=== PATIENT | male | born 1940 | race Caucasian/White ===

== ENCOUNTER 2020-09-13 19:47 | Inpatient (IN) ==
[2020-09-13] MEDS ORDERED: Pantoprazole VIAL 40 MG VIAL IV ONE (20:25)
[2020-09-13] MEDS ORDERED: NS 0.9% 1000 ml BAG 2,000 ML IV ONE (20:25)
[2020-09-13] MEDS ORDERED: Phytonadione IV (Adult) 10 MG in NS 0.9% 50 ML 50 ML IV ONE (20:26)
[2020-09-13 20:55] LABS: ABS Lymphocytes 0.7 10^3/ul (1.0-4.8); ABS Monocytes 0.9 10^3/ul (0-0.8); ABS Neutrophils 11.2 10^3/ul (1.5-7.7); Hematocrit 27 % (42-52); Lymphocyte % 5.5 %; Mean Corpuscular HGB Conc 34 g/dL (31-36); Mean Corpuscular Hemoglobin 30 pg (27-31); Mean Corpuscular Volume 90 fL (80-94); Mean Platelet Volume 7.3 fL (7.4-10.4); Platelet Count 309 10^3/uL (150-450); Red Blood Count 2.96 10^6 /uL (4.18-5.48); Red Cell Distribution Width 15 % (10-15); White Blood Count 12.7 10^3/uL (3.5-10.8)
[2020-09-13 21:11] LABS: Albumin 3.7 g/dL (3.2-5.2); Albumin/Globulin Ratio 1.6 (1-3); BUN/Creatinine Ratio 44.4 (8-20); Calcium 8.8 mg/dL (8.6-10.3); EGFR African American 25.6 (>60); EGFR Non-African American 21.2 (>60); Globulin 2.3 g/dL (2-4); Potassium 3.8 mmol/L (3.5-5.0); Total Bilirubin 1.3 mg/dL (0.2-1.0)
[2020-09-13] MEDS ORDERED: Dextrose 50% Syringe 50 ml 25 GM/50 ML SYRINGE IV PUSH PRN (22:58)
[2020-09-13] MEDS ORDERED: Ondansetron 4 mg VIAL 2 MG/ML 2 ml VIAL IV PRN (22:58)
[2020-09-13] MEDS ORDERED: NS 0.9% 1000 ml BAG 1,000 ML IV SCH (23:00)
[2020-09-13] MEDS: Pantoprazole 80 mg in NS BAG 80 MG/250 ML BAG IV SCH (23:52)
[2020-09-14 00:43] LABS: Activated Partial Thrombo Time 67.6 seconds (26.0-38.0)
[2020-09-14 00:47] LABS: INR >10.00 (0.82-1.09)
[2020-09-14] MEDS ORDERED: Prothrombin Complex Conc. DOSE = Units Factor IX (nine) IV SLOW PU ONE (00:48)
[2020-09-14 02:39] LABS: Urine Appearance Cloudy; Urine Bilirubin Negative (Negative); Urine Blood 3+ (Negative); Urine Color Amber; Urine Glucose Negative (Negative); Urine Ketones Negative (Negative); Urine Nitrite Negative (Negative); Urine Protein 1+(30 mg/dL) (Negative); Urine Specific Gravity 1.015 (1.010-1.030); Urine Urobilinogen Negative (Negative)
[2020-09-14 02:44] LABS: Urine Bacteria Absent (Absent); Urine Red Blood Cell 3+(>10/hpf) (Absent); Urine White Blood Cell 3+(>20/hpf) (Absent)
[2020-09-14 02:45] LABS: Urine Creatinine Concentration 87.37 mg/dL
[2020-09-14 03:10] LABS: Hematocrit 25 % (42-52); Hemoglobin 8.1 g/dL (14.0-18.0)
[2020-09-14 03:31] LABS: BUN/Creatinine Ratio 55.5 (8-20); Calcium 7.9 mg/dL (8.6-10.3); EGFR African American 34.9 (>60); EGFR Non-African American 28.9 (>60)
[2020-09-14] MEDS ORDERED: Potassium Chlor 20 meq TAB.ER PO ONE (03:39)
[2020-09-14 04:37] LABS: Magnesium 2.1 mg/dL (1.9-2.7)
[2020-09-14 04:41] LABS: ABS Lymphocytes 1.4 10^3/ul (1.0-4.8); ABS Monocytes 1.2 10^3/ul (0-0.8); ABS Neutrophils 11.2 10^3/ul (1.5-7.7); Hematocrit 25 % (42-52); Hemoglobin 8.3 g/dL (14.0-18.0); Lymphocyte % 10.3 %; Mean Corpuscular HGB Conc 34 g/dL (31-36); Mean Corpuscular Hemoglobin 30 pg (27-31); Mean Corpuscular Volume 89 fL (80-94); Mean Platelet Volume 7.3 fL (7.4-10.4); Platelet Count 244 10^3/uL (150-450); Red Blood Count 2.76 10^6 /uL (4.18-5.48); Red Cell Distribution Width 15 % (10-15); White Blood Count 13.8 10^3/uL (3.5-10.8)
[2020-09-14 04:48] LABS: INR 1.2 (0.82-1.09)
[2020-09-14] MEDS: KCL 10 MEQ/50 ML IVPREMIX 10 MEQ/50 ML BAG IV SCH ×3 (06:14→09:38)
[2020-09-14 07:54] LABS: Hematocrit 24 % (42-52)
[2020-09-14] MEDS: Pantoprazole 80 mg in NS BAG 80 MG/250 ML BAG IV SCH ×2 (09:59→20:11)
[2020-09-14 12:42] LABS: Hematocrit 26 % (42-52); Hemoglobin 8.7 g/dL (14.0-18.0)
[2020-09-14 14:07] LABS: Calcium 8.6 mg/dL (8.6-10.3); Potassium 3.5 mmol/L (3.5-5.0)
[2020-09-14 14:13] LABS: BUN/Creatinine Ratio 56.4 (8-20); EGFR African American 43.8 (>60); EGFR Non-African American 36.2 (>60)
[2020-09-14] MEDS ORDERED: Magnesium Sulfate IV 1GM/100ML 1 GM/100 ML BAG IV ONE (14:37)
[2020-09-14] MEDS: NS 0.9% w/ 20 Meq KCL 1000 ml 1,000 ML IV SCH (15:00)
[2020-09-14] MEDS ORDERED: Midazolam 10 mg/10 ml VIAL 1 mg/ml 10 ml VIAL (10 mg) ONE (15:09)
[2020-09-14] MEDS ORDERED: fentaNYL 100 mcg/2 ml 50 MCG/ML VIAL ONE (15:09)
[2020-09-15] MEDS: NS 0.9% w/ 20 Meq KCL 1000 ml 1,000 ML IV SCH ×2 (00:52→11:31)
[2020-09-15 04:46] LABS: ABS Lymphocytes 0.8 10^3/ul (1.0-4.8); ABS Monocytes 0.8 10^3/ul (0-0.8); ABS Neutrophils 6.7 10^3/ul (1.5-7.7); Eosinophil % 0.1 %; Hematocrit 22 % (42-52); Hemoglobin 7.4 g/dL (14.0-18.0); Lymphocyte % 9.5 %; Mean Corpuscular HGB Conc 34 g/dL (31-36); Mean Corpuscular Hemoglobin 31 pg (27-31); Mean Corpuscular Volume 91 fL (80-94); Mean Platelet Volume 7.1 fL (7.4-10.4); Platelet Count 231 10^3/uL (150-450); Red Blood Count 2.43 10^6 /uL (4.18-5.48); Red Cell Distribution Width 16 % (10-15); White Blood Count 8.3 10^3/uL (3.5-10.8)
[2020-09-15 05:02] LABS: BUN/Creatinine Ratio 58.2 (8-20); Calcium 7.6 mg/dL (8.6-10.3); EGFR African American 77.7 (>60); EGFR Non-African American 64.2 (>60); Potassium 3.1 mmol/L (3.5-5.0)
[2020-09-15] MEDS ORDERED: Potassium Chlor 20 meq TAB.ER PO ONE (05:24)
[2020-09-15] MEDS: Pantoprazole 80 mg in NS BAG 80 MG/250 ML BAG IV SCH (07:49)
[2020-09-15] MEDS: Potassium Chlor 20 meq TAB.ER PO SCH ×2 (08:00→20:07)
[2020-09-15] MEDS: Pantoprazole VIAL 40 MG VIAL IV SCH (20:07)
[2020-09-16 03:39] LABS: Urine Appearance Clear; Urine Bilirubin Negative (Negative); Urine Blood 2+ (Negative); Urine Color Yellow; Urine Glucose 2+(150 mg/dL) (Negative); Urine Ketones Negative (Negative); Urine Nitrite Negative (Negative); Urine Protein Negative (Negative); Urine Specific Gravity 1.018 (1.010-1.030); Urine Urobilinogen Positive (Negative)
[2020-09-16 03:41] LABS: Urine Bacteria Absent (Absent); Urine Red Blood Cell 3+(>10/hpf) (Absent); Urine White Blood Cell 1+(6-10/hpf) (Absent)
[2020-09-16 07:06] LABS: ABS Lymphocytes 1.1 10^3/ul (1.0-4.8); ABS Monocytes 0.7 10^3/ul (0-0.8); ABS Neutrophils 5.1 10^3/ul (1.5-7.7); Eosinophil % 0.6 %; Hematocrit 21 % (42-52); Hemoglobin 7.1 g/dL (14.0-18.0); Lymphocyte % 16.3 %; Mean Corpuscular HGB Conc 34 g/dL (31-36); Mean Corpuscular Hemoglobin 31 pg (27-31); Mean Corpuscular Volume 91 fL (80-94); Mean Platelet Volume 6.7 fL (7.4-10.4); Nucleated Red Blood Cells % 0.1; Platelet Count 255 10^3/uL (150-450); Red Blood Count 2.33 10^6 /uL (4.18-5.48); Red Cell Distribution Width 16 % (10-15)
[2020-09-16 07:17] LABS: BUN/Creatinine Ratio 39.5 (8-20); Calcium 7.8 mg/dL (8.6-10.3); EGFR African American 110.7 (>60); EGFR Non-African American 91.5 (>60); Potassium 4.4 mmol/L (3.5-5.0)
[2020-09-16] MEDS: Potassium Chlor 20 meq TAB.ER PO SCH ×2 (08:18→21:38)
[2020-09-16] MEDS: Pantoprazole VIAL 40 MG VIAL IV SCH ×2 (08:18→21:37)
[2020-09-16 17:10] LABS: Hematocrit 22 % (42-52); Hemoglobin 7.5 g/dL (14.0-18.0)
[2020-09-17] MEDS: Potassium Chlor 20 meq TAB.ER PO SCH ×2 (08:21→20:07)
[2020-09-17] MEDS: Pantoprazole VIAL 40 MG VIAL IV SCH ×2 (08:21→20:06)
[2020-09-17 09:34] LABS: Hematocrit 25 % (42-52); Hemoglobin 8.6 g/dL (14.0-18.0)
[2020-09-17] MEDS ORDERED: Haloperidol 5 mg/ml SDV IV/IM 5 MG/ML AMP IV SLOW PU ONE (23:34)
[2020-09-17] MEDS: Haloperidol 5 mg/ml SDV IV/IM 5 MG/ML AMP ONE ×2 (23:51→23:52)
[2020-09-18] MEDS: Pantoprazole VIAL 40 MG VIAL IV SCH ×2 (09:09→20:08)
[2020-09-18] MEDS: Potassium Chlor 20 meq TAB.ER PO SCH ×2 (09:09→20:04)
[2020-09-18 13:35] LABS: Hematocrit 26 % (42-52); Hemoglobin 8.7 g/dL (14.0-18.0)
[2020-09-18] MEDS ORDERED: Haloperidol 5 mg/ml SDV IV/IM 5 MG/ML AMP IV SLOW PU ONE (18:59)
[2020-09-18] MEDS ORDERED: Haloperidol 5 mg/ml SDV IV/IM 5 MG/ML AMP ONE (19:02)
[2020-09-19 09:31] LABS: Hematocrit 24 % (42-52); Hemoglobin 8.2 g/dL (14.0-18.0)
[2020-09-19 09:37] LABS: INR 1.33 (0.82-1.09)
[2020-09-19] MEDS: Potassium Chlor 20 meq TAB.ER PO SCH ×2 (09:54→20:56)
[2020-09-19] MEDS: Pantoprazole VIAL 40 MG VIAL IV SCH ×2 (09:54→20:56)
[2020-09-19 10:03] LABS: Calcium 8.1 mg/dL (8.6-10.3); EGFR African American 117.3 (>60); Potassium 4.5 mmol/L (3.5-5.0)
[2020-09-20] MEDS: Pantoprazole VIAL 40 MG VIAL IV SCH (09:28)
[2020-09-20] MEDS: Potassium Chlor 20 meq TAB.ER PO SCH ×2 (09:28→21:37)
[2020-09-21 08:29] LABS: Hematocrit 29 % (42-52); Hemoglobin 9.5 g/dL (14.0-18.0)
[2020-09-21] MEDS: Potassium Chlor 20 meq TAB.ER PO SCH (08:57)
[2020-09-21] MEDS ORDERED: Lorazepam PYXIS KEY PRN (12:28)
[2020-09-21] MEDS ORDERED: LORazepam 2 mg VIAL 1 ml IV PUSH ONE ×2 (12:28→13:53)
[2020-09-21] MEDS ORDERED: LORazepam 2 mg VIAL 1 ml ONE (12:32)
[2020-09-21 17:22] VITALS: BP 99/54
== END 2020-09-21 15:00 | disposition swing bed (61) | DRG 377 ==
LOC: ED 19:47 → ICU 22:54 → MEDTELE 09-15 14:45
PROVIDERS: ADMIT Internal Medicine; ATTEND Student in an Organized Health Care Education/Training Program

== ENCOUNTER 2020-09-21 15:14 | Inpatient (IN) ==
[2020-09-21] MEDS ORDERED: Dextrose 50% Syringe 50 ml 25 GM/50 ML SYRINGE IV PUSH PRN (15:31)
[2020-09-21] MEDS ORDERED: Ondansetron ODT 4 mg TAB 4 MG TAB SL PRN (15:33)
[2020-09-21] MEDS: Potassium Chlor 20 meq TAB.ER PO SCH (20:05)
[2020-09-22] MEDS: Potassium Chlor 20 meq TAB.ER PO SCH ×2 (08:50→20:01)
[2020-09-23] MEDS: Potassium Chlor 20 meq TAB.ER PO SCH ×2 (08:48→20:34)
[2020-09-24] MEDS ORDERED: Magnesium Hydroxide LIQ 30 ML UDC PO PRN (04:03)
[2020-09-24] MEDS ORDERED: Polyethylene Glycol 3350 17 GM PACKET PO PRN (04:03)
[2020-09-24] MEDS ORDERED: Albuterol 2.5mg/3 ml (0.083%) NEB.SOLN INH PRN (08:08)
[2020-09-24] MEDS: Potassium Chlor 20 meq TAB.ER PO SCH ×2 (08:30→21:22)
[2020-09-25] MEDS: Potassium Chlor 20 meq TAB.ER PO SCH ×2 (08:21→20:32)
[2020-09-26 09:30] VITALS: BP 128/85
[2020-09-26] MEDS: Potassium Chlor 20 meq TAB.ER PO SCH (09:44)
== END 2020-09-26 11:50 | DRG 378 ==
LOC: MEDTELE 15:47
PROVIDERS: ADMIT Internal Medicine; ATTEND Hospitalist

== ENCOUNTER 2021-06-22 14:15 | Inpatient (IN) ==
[2021-06-22] MEDS ORDERED: NS 0.9% 1000 ml BAG 1,000 ML IV ONE ×2 (14:44→17:46)
[2021-06-22 15:27] LABS: ABS Lymphocytes 0.6 10^3/ul (1.0-4.8); ABS Monocytes 0.2 10^3/ul (0-0.8); ABS Neutrophils 4.1 10^3/ul (1.5-7.7); Eosinophil % 0.1 %; Hematocrit 41 % (42-52); Hemoglobin 13.4 g/dL (14.0-18.0); Lymphocyte % 12.1 %; Mean Corpuscular HGB Conc 33 g/dL (31-36); Mean Corpuscular Hemoglobin 29 pg (27-31); Mean Corpuscular Volume 87 fL (80-94); Mean Platelet Volume 7.2 fL (7.4-10.4); Platelet Count 311 10^3/uL (150-450); Red Blood Count 4.67 10^6 /uL (4.18-5.48); Red Cell Distribution Width 18 % (10-15); White Blood Count 4.9 10^3/uL (3.5-10.8)
[2021-06-22 15:57] LABS: ALT 12 U/L (7-52); AST 20 U/L (13-39); Albumin/Globulin Ratio 1.1 (1-3); Alkaline Phosphatase 67 U/L (35-149); Blood Urea Nitrogen 55 mg/dL (6-24); CO2 Carbon Dioxide 23 mmol/L (22-32); Calcium 8.7 mg/dL (8.6-10.3); Chloride 98 mmol/L (101-111); Creatine Kinase 27 U/L (10-223); Globulin 2.7 g/dL (2-4); Glucose 95 mg/dL (70-100); Sodium 130 mmol/L (135-145); Total Protein 5.7 g/dL (6.4-8.9)
[2021-06-22 16:00] LABS: Acetaminophen 17 mcg/mL; Alcohol, S < 13 mg/dL (<13); Salicylate < 2.50 mg/dL (<30)
[2021-06-22 16:00] LABS: PCO2 Arterial 38 mmHg (35-45)
[2021-06-22 16:04] LABS: Troponin I 0.14 ng/mL (<0.03)
[2021-06-22 16:14] LABS: TSH Ultra Thyroid Stim Horm 2.85 mcIU/mL (0.34-5.60)
[2021-06-22 16:15] LABS: Anion Gap 9 mmol/L (2-11); Potassium 6.3 mmol/L (3.5-5.0)
[2021-06-22] MEDS ORDERED: cefTRIAXone 1 gm/50 mL NS BAG 1 GM/50 ML BAG IV ONE (16:29)
[2021-06-22] MEDS ORDERED: Dextrose 50% Syringe 50 ml 25 GM/50 ML SYRINGE IV PUSH ONE (16:29)
[2021-06-22] MEDS ORDERED: Dextrose 50% Syringe 50 ml 25 GM/50 ML SYRINGE IV PUSH PRN (16:29)
[2021-06-22] MEDS ORDERED: Azithromycin 500 mg/250 ml NS 500 MG/250 ML BAG IVPB ONE (16:29)
[2021-06-22] MEDS ORDERED: Cefepime 2 GM in Dextrose 2 GM/50 ML BAG IV ONE (16:31)
[2021-06-22] MEDS ORDERED: Clindamycin 600 MG/D5W BAG 600 MG/50 ML BAG IV ONE (16:31)
[2021-06-22] MEDS ORDERED: Albuterol 2.5mg/3 ml (0.083%) NEB.SOLN INH ONE (16:32)
[2021-06-22 16:51] LABS: PO2 Arterial < 38 mmHg (80-100)
[2021-06-22 17:38] LABS: PCO2 Arterial 28 mmHg (35-45); PO2 Arterial 77 mmHg (80-100)
[2021-06-22] MEDS ORDERED: Piperacillin/Tazobac ADVAN 3.375 GM in NS 0.9% 100 ml BAG 100 ML IV ONE (17:43)
[2021-06-22] MEDS ORDERED: Collagenase 250 units/gm OINT 1 tube TOPICAL PRN (17:46)
[2021-06-22] MEDS ORDERED: Magnesium Hydroxide LIQ 30 ML UDC PO PRN (17:46)
[2021-06-22] MEDS ORDERED: Zosyn per Pharmacy NOTE FOLLOW UP SCH (18:00)
[2021-06-22 19:58] LABS: Blood Urea Nitrogen 54 mg/dL (6-24); CO2 Carbon Dioxide 23 mmol/L (22-32); Calcium 8.6 mg/dL (8.6-10.3); Chloride 100 mmol/L (101-111); Glucose 114 mg/dL (70-100); Sodium 132 mmol/L (135-145)
[2021-06-22] MEDS ORDERED: Lactated Ringers 1000 ml BAG 1,000 ML IV SCH (20:00)
[2021-06-22] MEDS ORDERED: Azithromycin 500 mg/250 ml NS 500 MG/250 ML BAG IVPB SCH (20:00)
[2021-06-22 20:07] LABS: Rapid COVID-19 Molecular Undetected (Undetected)
[2021-06-22 20:20] LABS: Anion Gap 9 mmol/L (2-11); Potassium 5.4 mmol/L (3.5-5.0); Troponin I 0.13 ng/mL (<0.03)
[2021-06-23 00:02] LABS: Urine Appearance Cloudy; Urine Bilirubin Negative (Negative); Urine Blood 3+ (Negative); Urine Color Yellow; Urine Glucose Negative (Negative); Urine Ketones Negative (Negative); Urine Nitrite Negative (Negative); Urine Protein 1+(30 mg/dL) (Negative); Urine Specific Gravity 1.021 (1.002-1.030); Urine Urobilinogen Negative (Negative)
[2021-06-23 00:12] LABS: Urine Bacteria 1+ (Absent); Urine Granular Casts Present (Absent); Urine Red Blood Cell 3+(>10/hpf) (Absent); Urine Squamous Epithelial Cell Present (Absent); Urine White Blood Cell 3+(>20/hpf) (Absent)
[2021-06-23 00:16] LABS: Calcium 8.6 mg/dL (8.6-10.3)
[2021-06-23] MEDS: ZOSYN 3.375 GM Q8H per EXTENDED INFUSION IV SCH ×3 (00:51→16:14)
[2021-06-23 05:03] LABS: Hematocrit 43 % (42-52); Hemoglobin 14.4 g/dL (14.0-18.0); Mean Corpuscular HGB Conc 34 g/dL (31-36); Mean Corpuscular Hemoglobin 29 pg (27-31); Mean Corpuscular Volume 88 fL (80-94); Mean Platelet Volume 7.2 fL (7.4-10.4); Platelet Count 276 10^3/uL (150-450); Red Blood Count 4.91 10^6 /uL (4.18-5.48); Red Cell Distribution Width 18 % (10-15); White Blood Count 6.8 10^3/uL (3.5-10.8)
[2021-06-23 05:06] LABS: INR 3.69 (0.86-1.15)
[2021-06-23 05:18] LABS: Albumin 3.1 g/dL (3.2-5.2); Albumin/Globulin Ratio 1.1 (1-3); Calcium 8.9 mg/dL (8.6-10.3); Globulin 2.9 g/dL (2-4); Magnesium 2.1 mg/dL (1.9-2.7); Phosphorus 3.1 mg/dL (2.5-5.0); Potassium 4.5 mmol/L (3.5-5.0); Total Bilirubin 1.8 mg/dL (0.2-1.0)
[2021-06-23 06:19] LABS: ABS Lymphocytes 0.6 10^3/ul (1.0-4.8); ABS Monocytes 0.2 10^3/ul (0-0.8); ABS Neutrophils 5.7 10^3/ul (1.5-7.7); Lymphocyte % 8.9 %; Nucleated Red Blood Cells % 0.1
[2021-06-23] MEDS ORDERED: Lactated Ringers 1000 ml BAG 500 ML IV ONE (07:23)
[2021-06-23 08:01] LABS: Direct Bilirubin 0.8 mg/dL (0.03-0.18)
[2021-06-23] MEDS ORDERED: Morphine 2 MG/ML SYRINGE IV ONE (12:02)
[2021-06-23 14:01] LABS: Anion Gap 10 mmol/L (2-11); Blood Urea Nitrogen 47 mg/dL (6-24); CO2 Carbon Dioxide 21 mmol/L (22-32); Chloride 103 mmol/L (101-111); Glucose 124 mg/dL (70-100); Magnesium 2.1 mg/dL (1.9-2.7); Potassium 4.3 mmol/L (3.5-5.0); Sodium 134 mmol/L (135-145)
[2021-06-23 14:07] LABS: Troponin I 0.44 ng/mL (<0.03)
[2021-06-23] MEDS ORDERED: Metoprolol Tartrate 5 mg VIAL 5 ml VIAL (1 mg/ml) IV ONE (14:13)
[2021-06-23] MEDS ORDERED: Metoprolol Tartrate 5 mg VIAL 5 ml VIAL (1 mg/ml) ONE (14:17)
[2021-06-23] MEDS: Metoprolol Tartrate 5 mg VIAL 5 ml VIAL (1 mg/ml) IV SCH ×2 (16:13→21:10)
[2021-06-23 17:43] LABS: Troponin I 0.46 ng/mL (<0.03)
[2021-06-23 20:31] LABS: Troponin I 0.27 ng/mL (<0.03)
[2021-06-23 22:21] LABS: PCO2 Arterial 32 mmHg (35-45); PO2 Arterial 90 mmHg (80-100)
[2021-06-23] MEDS ORDERED: Pantoprazole VIAL 40 MG VIAL IV ONE (22:35)
[2021-06-23] MEDS ORDERED: Octreotide Acetate 50 MCG in NS 0.9% 50 ML 50 ML IV ONE (22:38)
[2021-06-23 22:44] LABS: Hematocrit 48 % (42-52); Hemoglobin 15.3 g/dL (14.0-18.0)
[2021-06-23 22:53] LABS: Hematocrit 47 % (42-52); Hemoglobin 15.3 g/dL (14.0-18.0); Mean Corpuscular HGB Conc 33 g/dL (31-36); Mean Corpuscular Hemoglobin 29 pg (27-31); Mean Corpuscular Volume 90 fL (80-94); Mean Platelet Volume 7.3 fL (7.4-10.4); Platelet Count 296 10^3/uL (150-450); Red Blood Count 5.25 10^6 /uL (4.18-5.48); Red Cell Distribution Width 19 % (10-15); White Blood Count 4.3 10^3/uL (3.5-10.8)
[2021-06-23] MEDS: Pantoprazole 80 mg in NS BAG 80 MG/250 ML BAG IV SCH (23:00)
[2021-06-23] MEDS ORDERED: Octreotide Acetate 500 MCG in NS 0.9% 100 ml BAG 100 ML IV SCH (23:00)
[2021-06-23] MEDS ORDERED: Prothrombin Complex Conc. DOSE = Units Factor IX (nine) IV SLOW PU ONE (23:04)
[2021-06-23] MEDS ORDERED: Norepinephrine 16MCG/ML IVPRE 4,000 MCG/250 ML BAG IV SCH (23:45)
[2021-06-23 23:47] LABS: Activated Partial Thrombo Time 30.1 seconds (26.0-38.0); INR 2.47 (0.86-1.15)
[2021-06-24] MEDS ORDERED: NS 0.9% 250 ml 250 ML IV ONE (00:14)
[2021-06-24] MEDS ORDERED: NS 0.9% 1000 ml BAG 1,000 ML IV SCH (00:15)
[2021-06-24] MEDS: ZOSYN 3.375 GM Q8H per EXTENDED INFUSION IV SCH ×4 (01:29→22:21)
[2021-06-24 01:47] LABS: Hematocrit 42 % (42-52); Hemoglobin 13.8 g/dL (14.0-18.0)
[2021-06-24] MEDS ORDERED: NS 0.9% 500 ml BAG 500 ML IV ONE (03:05)
[2021-06-24] MEDS: Metoprolol Tartrate 5 mg VIAL 5 ml VIAL (1 mg/ml) IV SCH ×4 (04:53→20:46)
[2021-06-24 05:18] LABS: INR 1.79 (0.86-1.15)
[2021-06-24 05:27] LABS: Calcium 8.2 mg/dL (8.6-10.3); Magnesium 1.9 mg/dL (1.9-2.7); Phosphorus 2.8 mg/dL (2.5-5.0); Potassium 3.8 mmol/L (3.5-5.0)
[2021-06-24] MEDS: Dextrose 50% Syringe 50 ml 25 GM/50 ML SYRINGE IV PUSH PRN ×2 (05:40→16:27)
[2021-06-24 05:48] LABS: Burr Cells 3+; Hematocrit 40 % (42-52); Hemoglobin 13.4 g/dL (14.0-18.0); Mean Corpuscular HGB Conc 33 g/dL (31-36); Mean Corpuscular Hemoglobin 29 pg (27-31); Mean Corpuscular Volume 88 fL (80-94); Mean Platelet Volume 7.5 fL (7.4-10.4); Platelet Count 253 10^3/uL (150-450); Red Blood Count 4.59 10^6 /uL (4.18-5.48); Red Cell Distribution Width 18 % (10-15)
[2021-06-24 05:50] LABS: ABS Lymphocytes 0.3 10^3/ul (1.0-4.8); ABS Neutrophils 5.7 10^3/ul (1.5-7.7); Eosinophil % 0.1 %; Lymphocyte % 4.3 %
[2021-06-24] MEDS ORDERED: Norepinephrine 16MCG/ML IVPRE 4,000 MCG/250 ML BAG IV SCH ×2 (07:37→08:00)
[2021-06-24] MEDS ORDERED: Furosemide 20 mg/2 ml IV VIAL IV SLOW PU ONE ×2 (08:19→12:14)
[2021-06-24] MEDS: Pantoprazole 80 mg in NS BAG 80 MG/250 ML BAG IV SCH ×2 (08:52→18:36)
[2021-06-24] MEDS ORDERED: Octreotide Acetate 500 MCG in NS 0.9% 100 ml BAG 100 ML IV SCH (09:00)
[2021-06-24] MEDS ORDERED: Norepinephrine IV 4 MG in NS 0.9% 250 ml 246 ML IVPB SCH (12:00)
[2021-06-24 15:41] LABS: Hematocrit 43 % (42-52); Hemoglobin 14.1 g/dL (14.0-18.0)
[2021-06-25] MEDS: Metoprolol Tartrate 5 mg VIAL 5 ml VIAL (1 mg/ml) IV SCH ×3 (02:49→17:07)
[2021-06-25 04:09] LABS: Hematocrit 40 % (42-52); Hemoglobin 13.4 g/dL (14.0-18.0); Mean Corpuscular HGB Conc 33 g/dL (31-36); Mean Corpuscular Hemoglobin 29 pg (27-31); Mean Corpuscular Volume 86 fL (80-94); Mean Platelet Volume 7.7 fL (7.4-10.4); Platelet Count 195 10^3/uL (150-450); Red Blood Count 4.67 10^6 /uL (4.18-5.48); Red Cell Distribution Width 19 % (10-15); White Blood Count 9.4 10^3/uL (3.5-10.8)
[2021-06-25] MEDS: Pantoprazole 80 mg in NS BAG 80 MG/250 ML BAG IV SCH ×2 (04:18→15:04)
[2021-06-25 04:20] LABS: INR 1.91 (0.86-1.15)
[2021-06-25 04:25] LABS: Calcium 8.8 mg/dL (8.6-10.3); Phosphorus 3.8 mg/dL (2.5-5.0); Potassium 4.1 mmol/L (3.5-5.0)
[2021-06-25] MEDS: ZOSYN 3.375 GM Q8H per EXTENDED INFUSION IV SCH ×3 (08:18→23:48)
[2021-06-26] MEDS: Pantoprazole 80 mg in NS BAG 80 MG/250 ML BAG IV SCH ×3 (01:21→23:08)
[2021-06-26 04:34] LABS: ABS Lymphocytes 0.5 10^3/ul (1.0-4.8); ABS Monocytes 0.3 10^3/ul (0-0.8); ABS Neutrophils 9.3 10^3/ul (1.5-7.7); Hematocrit 38 % (42-52); Hemoglobin 12.5 g/dL (14.0-18.0); Lymphocyte % 5.1 %; Mean Corpuscular HGB Conc 33 g/dL (31-36); Mean Corpuscular Hemoglobin 28 pg (27-31); Mean Corpuscular Volume 86 fL (80-94); Mean Platelet Volume 7.6 fL (7.4-10.4); Platelet Count 155 10^3/uL (150-450); Red Blood Count 4.45 10^6 /uL (4.18-5.48); Red Cell Distribution Width 19 % (10-15); White Blood Count 10.1 10^3/uL (3.5-10.8)
[2021-06-26 04:42] LABS: INR 1.9 (0.86-1.15)
[2021-06-26 04:59] LABS: Calcium 8.9 mg/dL (8.6-10.3); Magnesium 2.1 mg/dL (1.9-2.7); Potassium 3.5 mmol/L (3.5-5.0)
[2021-06-26] MEDS ORDERED: KCL 20 MEQ/100 ML IVPREMIX 20 MEQ/100 ML BAG IV ONE (07:56)
[2021-06-26] MEDS: ZOSYN 3.375 GM Q8H per EXTENDED INFUSION IV SCH ×3 (09:23→23:38)
[2021-06-26] MEDS ORDERED: Lactated Ringers 1000 ml BAG 1,000 ML IV SCH (11:00)
[2021-06-26] MEDS: Thiamine 100 MG/ML 2 ml VIAL 500 MG in NS 0.9% 250 ml 250 ML IV SCH ×2 (13:13→20:56)
[2021-06-26] MEDS ORDERED: Dextrose 50% Syringe 50 ml 25 GM/50 ML SYRINGE IV PUSH PRN (15:11)
[2021-06-26] MEDS ORDERED: TPN 24 HR with Dextrose 50% Water 500 ML, Amino Acid Infusion 10% 850 ML, Sterile Water... CENT\\PICC SCH (17:00)
[2021-06-26] MEDS ORDERED: Lactulose 30 ml UDC NG TUBE SCH (21:00)
[2021-06-27 04:41] LABS: PCO2 Arterial 48 mmHg (35-45)
[2021-06-27 04:44] LABS: PO2 Arterial 57 mmHg (80-100)
[2021-06-27] MEDS ORDERED: Morphine 2 MG/ML SYRINGE IV PRN (05:42)
[2021-06-27 05:50] LABS: ABS Lymphocytes 0.9 10^3/ul (1.0-4.8); ABS Monocytes 0.4 10^3/ul (0-0.8); Hematocrit 40 % (42-52); Hemoglobin 12.6 g/dL (14.0-18.0); Lymphocyte % 7.6 %; Mean Corpuscular HGB Conc 32 g/dL (31-36); Mean Corpuscular Hemoglobin 28 pg (27-31); Mean Corpuscular Volume 88 fL (80-94); Mean Platelet Volume 7.8 fL (7.4-10.4); Platelet Count 151 10^3/uL (150-450); Red Blood Count 4.56 10^6 /uL (4.18-5.48); Red Cell Distribution Width 20 % (10-15); White Blood Count 12.3 10^3/uL (3.5-10.8)
[2021-06-27] MEDS ORDERED: Norepinephrine 16MCG/ML IVPRE 4,000 MCG/250 ML BAG IV SCH (06:00)
[2021-06-27 06:06] LABS: Albumin 2.4 g/dL (3.2-5.2); Calcium 8.9 mg/dL (8.6-10.3); Globulin 2.5 g/dL (2-4); Magnesium 2.2 mg/dL (1.9-2.7); Potassium 3.7 mmol/L (3.5-5.0); Total Bilirubin 1.2 mg/dL (0.2-1.0); Total Protein 4.9 g/dL (6.4-8.9)
[2021-06-27 06:11] LABS: INR 2.01 (0.86-1.15)
[2021-06-27 06:15] VITALS: BP 69/57
[2021-06-27] MEDS ORDERED: LORazepam 2 mg VIAL 1 ml IV PUSH PRN (06:17)
[2021-06-27] MEDS ORDERED: Atropine 1% (ORAL/SL) 15 ML BTL SL PRN (06:17)
[2021-06-27] MEDS ORDERED: Lorazepam PYXIS KEY PRN (06:17)
[2021-06-27] MEDS ORDERED: Pantoprazole VIAL 40 MG VIAL IV SCH ×2 (09:00)
== END 2021-06-27 07:12 | disposition expired | DRG 177 ==
LOC: ED 14:15 → SUATTDRO 20:53 → ICU 20:53
PROVIDERS: ADMIT Internal Medicine; ATTEND Internal Medicine